=== PATIENT | female | born 1955 | race Caucasian/White ===

== ENCOUNTER 2018-03-12 01:17 | Inpatient (IN) | payer SELFPAY ==
[~2018-03-12] VITALS: Ht 162.6 cm; Wt 80.0 kg
[~2018-03-12 01:17] MED LIST: ALBUTEROL2.5 MG/3 M INH; CEFUROXIME500 MG PO; IPRATROPIU0.2 MG/1 M INH; LEVOTHYROXINE88 MCG PO; LISINOPRIL40 MG PO; METOPROLOL TART50 MG PO; NICOTINE PATCH1 EAC1 TD; OSTERA TABLET1 EACH PO; PREDNISONE20 MG PO; TRIAMCINOLONE A15 G1 TOP; VENTOLIN HFA18 GM INH
[2018-03-12] MEDS ORDERED: METOPROLOL TAR100 MG PO (02:26)
[2018-03-12] MEDS ORDERED: LISINOPRIL-HCT1 EACH PO (02:26)
[2018-03-12] MEDS ORDERED: AMLODIPINE BESYL5 MG PO (02:30)
--- NOTE | 2018-03-12 02:50 | NUR ---
PATIENT ARRIVED TO UNIT VIA STRETCHER, BREATHING IS EVEN AND UNLABORED, TRANSFERS TO BED WITH SBA. NOW RESTING IN BED. DENIES FURTHER NEEDS.
--- NOTE | 2018-03-12 03:00 | NUR ---
PATIENT IS RESTING IN BED, BREATHING IS EVEN AND UNLABORED. DENIES NEEDS AT THIS TIME. VITALS STABLE. CALL LIGHT WITHIN REACH.
--- NOTE | 2018-03-12 04:00 | NUR ---
PATIENT STATES "I HAVE A CRAMP IN MY LEFT LEG AND I JUST NEED TO STAND UP." SBA TO BEDSIDE, PATIENT STATES THAT PAIN IS RELIEVED WITH STANDING. NOW RESTING IN BED AGAIN, BREATHING IS EVEN AND UNLABORED. DENIES FURTHER NEEDS. CALL LIGHT WITHIN REACH.
--- NOTE | 2018-03-12 06:47 | NUR ---
PATIENT STATES "I FEEL LIKE I NEED A BREATHING TREATMENT." O2 SATURATION IS 97% ON 2L O2, RR IS 18, LUNG SOUNDS ARE AUDIBLE IN BASES BILATERALLY. REASSURED PATIENT AND CALLED RT FOR PATIENT EVALUATION. TRANSFERED PATIENT TO CHAIR DUE TO DISCOMFORT IN BED.
--- NOTE | 2018-03-12 07:15 | NUR ---
HAS MULT C/O, IE NOSE BEING DRY, L LEG CRAMPING AND WANTING TO SIT IN CHAIR. FEELING BETER SINCE NEB GIVEN. ASSISTED TO CHAIR BUT PT STANDING DO TO LEG CRAMPING .
--- NOTE | 2018-03-12 07:30 | NUR ---
BEDSIDE REPORT RECIEVED. PATIENT IS SITTING IN CHAIR. O2 AT [address] REQUESTING NORMAL SALINE FOR NOSE, THIS PLACED AT BEDSIDE.
--- NOTE | 2018-03-12 07:51 | NUR ---
PATIENT SITTING UP IN BEDSIDE RECLINER. THIS COGENERATION TECHNICIAN ASSISTED PATIENT UP TO BEDSIDE COMMODE AND BACK TO RECLINER. PATIENT WASHED HANDS AND FACE WITH WARM WASH CLOTH. CALL LIGHT IN REACH. NO OTHER NEEDS AT THIS TIME.
--- NOTE | 2018-03-12 08:45 | NUR ---
ASSESSMENT DONE. LUNGS DIMINISHED AND COURSE. ENCOURAGE DEEP BREATHING.TOOK BREAKFAST WELL. IS AWARE OF FLUID RESTRICTION.
--- NOTE | 2018-03-12 08:52 | NUR ---
PATIENT SITTING UP IN BEDSIDE RECLINER. PATIENT PERFORMED ORAL CARE. LINENS STRAIGHTENED AND READJUSTED NEEDED. PATIENT GIVEN ICE CHIPS FOR COMFORT AND ENCOURAGED TO CUT BACK ON FLUIDS. CALL LIGHT IN REACH. NO OTHER NEEDS AT THIS TIME.
--- NOTE | 2018-03-12 10:00 | NUR ---
PATIENT SITTING UP IN BEDSIDE RECLINER, RN IN ROOM. CALL LIGHT IN REACH. NO OTHER NEEDS AT THIS TIME.
--- NOTE | 2018-03-12 10:21 | NUR ---
D5W HUNG AT 300 ML/HR, TO INFUSE TOTAL OF 700 ML.
--- NOTE | 2018-03-12 11:05 | NUR ---
comtinue to sit in chair. prn neb treatment given. d5w at 300 ml infusing. HAS RECIEVED ALL PO MEDS. DENEIS PAIN. CONTINUE TO C/O NASAL CONGESTION.
--- NOTE | 2018-03-12 11:54 | NUR ---
PATIENT SITTING UP IN BEDSIDE RECLINER, PATIENT HAS HEAT PACK FOR LEG PAIN. PATIENT CALL LIGHT IN REACH. NO OTHER NEEDS AT THIS TIME.
--- NOTE | 2018-03-12 12:50 | NUR ---
D5W INFUSION COMPLETE FOR TOTAL OF 700 ML.
--- NOTE | 2018-03-12 13:26 | NUR ---
PT SITTING IN CHAIR, WORKING TO GET O2 HOSE UNTANGLED FROM BLANKET. PT SEEMED A LITTLE DISTANT, DID NOT WANT TO FORCE ANYTHING. EXTENDED A BLESSING, SHE THANKED ME. WILL FOLLOW NEEDED
--- NOTE | 2018-03-12 13:31 | NUR ---
THIS DIRECTOR OF INVESTIGATIONS ASSISTED PATIENT UP TO BATHROOM, AND BACK TO BEDSIDE RECLINER. PATIENT REQUESTED TO HAVE OXYGEN TITRATED UP TO 3L, RN NOTIFIED. PATIENT CALL LIGHT IN REACH, NO OTHER NEEDS AT THIS TIME.
--- NOTE | 2018-03-12 14:00 | NUR ---
SITTING IN CHAIR RESTING. NO DISTRESS NOTED.
--- NOTE | 2018-03-12 15:36 | NUR ---
PATIENT SITTING UP IN BEDSIDE RECLINER. RESPIRATORY THERAPY IN ROOM. CALL LIGHT IN REACH. NO OTHER NEEDS AT THIS TIME.
[2018-03-12] MEDS ORDERED: VITAMIN D1000 UNI1 PO (16:16)
[2018-03-12] MEDS ORDERED: COLACE100 MG PO (16:16)
[2018-03-12] MEDS ORDERED: MUCOSA400 MG PO (16:16)
[2018-03-12] MEDS ORDERED: PEPCID20 MG PO (16:17)
--- NOTE | 2018-03-12 16:17 | NUR ---
MED REC COMPLETE
--- NOTE | 2018-03-12 17:00 | NUR ---
ASSESSMENT UNCHANGED. HAS BEEN SITTING IN CHAIR. STATES FEELING BETTER.
--- NOTE | 2018-03-12 17:09 | NUR ---
PATIENT SITTING UP IN BEDSIDE RECLINER. PATIENT REQUESTED HAND LOTION AND WARM BLANKET. PATIENT CALL LIGHT IN REACH. NO OTHER NEEDS AT THIS TIME.
--- NOTE | 2018-03-12 18:52 | NUR ---
THIS BUSINESS REPORTING DEVELOPER ASSISTED PATIENT FROM BATHROOM BACK TO BEDSIDE RECLINER. PATIENT RESTING, CALLL LIGHT IN REACH. NO OTHER NEEDS AT THIS TIME.
--- NOTE | 2018-03-12 20:35 | NUR ---
IV SITE DRESSING CHANGED PER PT REQUEST. IV INTACT, NO REDNESS OR SWELLING, FLUSHES EASILY, PT DENIES PAIN WITH FLUSH. PT DENIES PAIN, NAUSEA, AND SOB IN GENERAL. PT ASHLYN 3L O2 VIA NASAL CANULA, HIMIDITY ADDED TO O2 PT C/O DRIED NARES. PT VITALS WNL AT THIS TIME. PT STATES THAT SHE WILL SLEEP IN HER CHAIR TONIGHT. PT ABLE TO ASHLYN PILLS EASILY.
--- NOTE | 2018-03-12 22:40 | NUR ---
pt up ambulated to the toilet, wob increased with activity. pt back to chair, states "i'm feeling hot!" temp in room turned down slightly, fan turned on. pt has call light within reach.
--- NOTE | 2018-03-13 00:55 | NUR ---
IV SITE INTACT, NO REDNESS OR SWELLING NOTED, FLUIDS INFUSE, PT STATES SITE IS TENDER. PT DENIES PAIN IN GENERAL, NAUSEA, AND SOB. PT IS SITTING UP IN CHAIR, STATES "I THINK I SLEPT FOR A LITTLE WHILE". PT ALERT AND ORIENTED X4, VITALS WNL.
--- NOTE | 2018-03-13 05:00 | NUR ---
PT SITTING UP IN CHIAR BRUSHING TEETH/DENTURES, AND WASHING FACE. PT DENIES PAIN, NAUSEA, AND SOB AT THIS TIME. VITALS WNL. PT HAS REMAINED IN CHAIR ALL SHIFT, EXCEPT WHEN AMBULATING TO TOILET. PT STATES "I MIGHT HAVE GOTTEN A LITTLE MORE SLEEP".
--- NOTE | 2018-03-13 06:34 | NUR ---
PT UP AMBULATED TO TOILET TO VOID. PT ABLE TO VOID 200 ML URINE. UNABLE TO HAVE BM, PT STATES "I THINK I MIGHT NEED ANOTHER STOOL SOFTENER". PT DENIES PAIN AND NAUSEA AT THIS TIME. WOB ONLY SLIGHTLY INCREASED WITH ACTIVITY.
--- NOTE | 2018-03-13 08:53 | NUR ---
RC'D NOTIFICATION FROM LAB REGARDING PT'S SODIUM LEVEL OF 116. PROVIDER BOTIFIED AT THIS TIME.
--- NOTE | 2018-03-13 09:00 | NUR ---
PATIENT CONTINUES TO SIT IN CHAIR AT THIS TIME. PO MEDICAITONS GIVEN BUT PATIENT STATES SHE NEEDS TO HAVE A BREATHING TREATMENT - RT CALLED AND WILL BE HERE TO GIVE TX. PATIENT'S SP02 IS 99% ON 2L NC. PT STATES SHE IS FEELING SHORT OF BREATH AND VISIBLY NOTED TO BE WORKING TO BREATH MORE THAN SHE WAS EARLIER THIS AM. PT STATES SHE STARTED TO FEEL THIS WAY AFTER EATING HER BREAKFAST. PT ADVISED TO HOLD OFF ON TAKING HER PILLS UNTIL AFTER SHE HAS A BREATHING TREATMENT. BP SLIGHTLY LOWER THIS AM AND LISINOPRIL AND NORVASC BEING HELD AFTER DISCUSSING WITH DR. NAIR. PT FEELS HER HEAD IS "STUFFY." CONTINUE TO MONITOR.
--- NOTE | 2018-03-13 09:09 | NUR ---
DR. NAIR IN ROOM AT THIS TIME EVALUATING PATIENT. PATIENT EXPLAINING TO MD HOW SHE IS FEELING MORE SHORT OF BREATH AT THIS TIME. CONTINUE TO MONITOR.
[2018-03-13] MEDS ORDERED: VENTOLIN HFA18 GM INH (13:33)
--- NOTE | 2018-03-13 15:35 | NUR ---
DR. NAIR UPDATED ON PATIENT'S SODIUM LEVEL AT 1400 WHICH WAS 117. NO FURTHER ORDERS REC'D AT THIS TIME. PATIENT ALSO GIVEN NASAL SPRAY TO HELP FLUSH SINUSES OUT. PT HAS BEEN COMPLAINING OF HER HEAD FEELING VERY CONGESTED ALL DAY.
--- NOTE | 2018-03-13 18:05 | NUR ---
PATIENT WANTING TO TAKE A SHOWER TODAY BUT FEELING TOO SHORT OF BREATH FOR THAT ACTIVITY. PT BECOMES FAIRLY SHORT OF BREATH AFTER AMBULATION INTO BATHROOM TO VOID. PT TO BE GIVEN WARM WIPES TO CLEANSE SELF WITH INSTEAD OF SHOWERING. PT REMAINS SITTING IN CHAIR AND PREFERS THE CHAIR OVER THE BED. LAB DRAW DUE AT THIS TIME. CONTINUE TO MONITOR.
--- NOTE | 2018-03-13 19:50 | NUR ---
PT UP TO BR TO VOID AND TO CLEAN SELF UP FOR THE NIGHT. BECOMES VERY SOB AFTER APPROX TEN MINUTES, BACK TO SIT IN CHAIR AND RECOVER. CALL LIGHT IN HAND.
--- NOTE | 2018-03-13 21:38 | NUR ---
PT UP TO CHAIR TO SLEEP. DID OWN BEDBATH AND HS CARES. INCREASED IVF TO 35ML/HR PER DR JOANIE GODINEZ (AT 2100). PT WITH O2 ON. CALL LIGHT IN REACH.
--- NOTE | 2018-03-13 23:42 | NUR ---
PT UP TO BR TO VOID. RT IN TO PROVIDE BREATHING TX.
--- NOTE | 2018-03-14 01:49 | NUR ---
PT ASLEEP IN CHAIR. NO S/S OF DISTRESS.
--- NOTE | 2018-03-14 02:25 | NUR ---
PT UP TO BR TO VOID AND ATTEMPT BM. BACK TO CHAIR. REQUESTS PRN NEB. RT NOTIFIED. NO OTHER NEEDS.
--- NOTE | 2018-03-14 03:37 | NUR ---
UPDATED DR NAIR RE: NA LEVEL OF 120. IV GTT HELD AT THIS TIME AND PT S.L. PER ORDER.
--- NOTE | 2018-03-14 04:16 | NUR ---
REPORT RECEIVED FROM REBECCA Atkinson RN
--- NOTE | 2018-03-14 05:18 | NUR ---
0500 PATIENT UP TO BATHROOM AND BACK TO RECLINER. DENIES ANY NEEDS AT THIS TIME.
--- NOTE | 2018-03-14 06:03 | NUR ---
UP TO BR TO TRY TO HAVE BM, NOT ABLE TO. BACK TO SIT UP IN RECLINER AND ORDERING BREAKFAST. SPO2 99% ON 2L/NC, LESS SOB WITH ACTIVITY THIS MORNING.
--- NOTE | 2018-03-14 07:30 | NUR ---
REPORT RECIEVED. PATIENT IS W/O. IS AWAITING BREAKFAST.
--- NOTE | 2018-03-14 08:00 | NUR ---
IS SITTING IN CHAIR. DENIES PROMLEMS. STATES SHE IS FEELING MUCH BETTER TODAY. ASKING ABOUT WHEN SHE WILL BE DISCHARGED. TALKED WITH PATIENT ABOUT PLAN OF CARE FOR DAY, INDICATES UNDERSTANDING.
--- NOTE | 2018-03-14 08:45 | NUR ---
TOOK ROUTINE MEDICATIONS W/O PROBLEMS.
--- NOTE | 2018-03-14 09:15 | NUR ---
REMAINS IN CHAIR. DENIES PROBLEMS.
--- NOTE | 2018-03-14 10:30 | NUR ---
TO BR TO HAVE MED BM. PATIENT DENIES NEED FOR SUPPOSITORY, THIS HELD.
--- NOTE | 2018-03-14 10:38 | NUR ---
PT SITTING IN CAHIR. SEEMED RESTLESS-PT MENTIONED THAT SHE REALLY WANTED TO TAKE A NAP BUT COULDN'T GET COMFORTABLE. WITH A SMILE SHE SAID SHE WAS FEELING BETTER THOUGH AND THANKED ME FOR COMING AND CHECKING ON HER. WILL FOLLOW NEEDED
--- NOTE | 2018-03-14 14:10 | NUR ---
LAB DRAWN. TO SHOWER.
--- NOTE | 2018-03-14 14:30 | NUR ---
TOLERATED SHOWER WELL.
--- NOTE | 2018-03-14 15:15 | NUR ---
DR. NAIR AWARE OF NA-124. PLAN TO INFUSE D5W, 320ML.
--- NOTE | 2018-03-14 16:30 | NUR ---
IV SITE RESTARTED TO R WRIST.
--- NOTE | 2018-03-14 16:50 | NUR ---
IVF D5W HUNG. TO INFUSE 320 ML PER ORDERS.
--- NOTE | 2018-03-14 18:10 | NUR ---
TRANSFERRED TO MEDICAL FLOOR VIA CHAIR. REPORT GIVEN.
--- NOTE | 2018-03-14 18:30 | NUR ---
PT TO FLOOR WITH SHAHID MCKEON BY CHAIR. 2L NC CHRONIC 02 SAT 100%. PT UP IN CHAIR WITH LEGS ELEVATED AND WARM BLANKET. SALINE NOSE SPRAY ON BEDSIDE TABLE. 1200ML FLUID RESTRICTION, PT IS COMPLIANT. SBA, STEADY GAIT. AO X3. DENIES PAIN. IV FLUSHES WELL. CALL LIGHT ON LAP.
--- NOTE | 2018-03-14 19:00 | NUR ---
SHIFT REPORT RECEIVED. PATIENT RETURNING TO RECLINER FROM BATHROOM. SHE DENIES ANY NEEDS AT THIS TIME. CALL LIGHT IN REACH.
--- NOTE | 2018-03-14 20:49 | NUR ---
VITALS AND I&OS DONE AND CHARTED. BEDSIDE TABLE AND CALL LIGHT WITHING REACH. PT NEEDS NOTHING AT THIS TIME.
--- NOTE | 2018-03-14 20:55 | NUR ---
SPOKE WITH ABOUT PATIENT'S NEWEST LABS. NEW ORDERS RECIEVED FOR HYPERTONIC SALINE IV FLUID @35CC/HR. VERIFIED USING READ BACK METHOD. REQUEST HE BE CALLED WITH LAB RESULT FROM 0200 LABS.
--- NOTE | 2018-03-14 21:00 | NUR ---
SHIFT ASSESSMENT COMPLETED. PATIENT RESTING IN RECLINER. APPEARS COMFORTABLE. AAOX4. BREATHING EVEN AND NONLABORED. TOLERATING 2L NC. EXPIRTORY WHEEZES HEARD THROUGHOUT, LOUDER IN LOWER LOBES TORSTEN. ENCOURAGED COUGH AND DEEP BREATHING. APPETITE IS GOOD, NO NAUSEA. BM TODAY. NO EDEMA NOTED. PATIENT FEELS THAT HER LEFT ANKLE IS SLIGHTLY SWOLLEN, SHE REPORTS PAIN WHEN AREA IS TOUCHED. STATES "I THINK I REMEMBER BUMPING IT ON SOMETHING AT HOME A FEW DAYS AGO". SKIN IS INTACT, NO BRUISING NOTED. IV SITE IN RIGHT WRIST, FLUSHES WELL. PATIENT COMPLAINS OF DISCOMFORT AT THE SITE. DECLINES WARM PACK. NO OTHER NEEDS AT THIS TIME. CALL LIGHT IN REACH. WAITING ON NEW IV FLUIDS FROM DIRECTOR FOUNDATION.
--- NOTE | 2018-03-14 22:00 | NUR ---
IV FLUIDS STARTED PER ORDER. EDUCATION PROVIDED VERBALLY TO PATIENT ON NEW TREATMENT. PATIENT VERBILIZED UNDERSTANDING. PATIENT COMPLAINED OF PAIN AT IV SITE, USUALLY WITH MOVEMENT. THE COBAN IS ALSO UNCOMFORTABLE ON HER SKIN, BUT SHE REFUSED TAPE DUE TO IRRITATION. WARM PACK APPLIED TO AREA, CUSHIONED COBAND TO REDUCE FRICTION. PATIENT REQUESTING TO BE WOKEN UP FOR HER MIDNIGHT NEB TREATMENT. RT AWARE.
--- NOTE | 2018-03-15 00:15 | NUR ---
PATIENT SITTING UPRIGHT IN RECLINER. BREATHING APPEARS SLIGHTLY LABORED. NC IN PLACE. WILL CONTINUE TO MONITOR.
--- NOTE | 2018-03-15 01:51 | NUR ---
PATIENT UP TO THE BATHROOM. LARGE BM. BACK TO RECLINER. DENIES FURTHER NEEDS. LAB CONTACTED FOR 0200 LABS.
--- NOTE | 2018-03-15 02:44 | NUR ---
PATIENT'S LABS SHOW INCREASE IN SODIUM FROM 122 TO 124. AWARE. ORDERS TO STOP 3% SALINE INFUSION AT THIS TIME AND REPEAT LABS AT 0800.
--- NOTE | 2018-03-15 02:45 | NUR ---
PATIENT REPORTS FEELING UPSET BY CONVERSATION WITH PROFESSOR OF FINE ART. DISCUSSED THIS WITH THE PATIENT AND OFFERED THERAPUTIC COMMUNICATION. DISCUSSED CONCERNS WITH MODERATE NEEDS TEACHER AND PLANNING SPECIALIST.
--- NOTE | 2018-03-15 04:00 | NUR ---
PATIENT SLEEPING SOUNDLY. DID NOT WAKE WHEN RN ENTERED ROOM. RR EVEN AND NONLABORED. 2L NC. RR18.
--- NOTE | 2018-03-15 05:15 | NUR ---
patient up to the bathroom. requesting prn neb. rt contacted.
--- NOTE | 2018-03-15 05:53 | NUR ---
PATIENT SLEPT OFF AND ON THROUGHOUT THE SHIFT. TOLERATED 2L NC, EXPIRTORY WHEEZES HEARD THROUGHOUT. SCHEDULED NEBS & USING IS. WITHIN 1200ML FLUID RESTRICTION. SODIUM DOWN TO 122 AT 2000, 3% SALINE AT 35CC/HR UNTIL 0200 LAB RESULTS SHOW INCREASE SODIUM 124. HOLD IV FLUID UNTIL 0800 LAB RESULTS. CONTACT WITH RESULTS. SBA.
--- NOTE | 2018-03-15 06:05 | NUR ---
VITALS AND I&OS DONE AND CHARTED. BEDSIDE TABLE AND CALL LIGHT WITHIN REACH. EMPTIED GARBAGES. PT NEEDS NOTHING ELSE AT THIS TIME.
--- NOTE | 2018-03-15 08:39 | NUR ---
PATIENT AMBULATED TO THE BR WITH NURSE STANDBY. WILL CALL WHEN FINISHED.
--- NOTE | 2018-03-15 08:51 | NUR ---
HERE ON MED/SURG AND INFORMED OF AM SODIUM LEVEL. HYPERTONIC SODIUM SOLUTION RESTARTED AT 35MLS/HR AND WILL REDRAW LABS THIS AFTERNOON. PATIENT WANTS TO GO HOME AND WANTS TO TALK WITH . INFORMED AND WILL SPEAK TO PATIENT ON ROUNDS.
--- NOTE | 2018-03-15 15:35 | NUR ---
PATIENT IS SITTING UP IN HER CHAIR.
--- NOTE | 2018-03-15 18:55 | NUR ---
PATIENT REMAINS SBA WHEN AMBULATING, BUT HAS HAD NO ISSUES. UP TO THE RESTROOM MULTIPLE TIMES TODAY. HAS BEEN EATING WELL. HYPERTONIC SODIUM SOLUTION TURNED BACK ON AT 35MLS AN HOUR THIS AM AFTER MORNING LABS CAME BACK AND V.O GIVEN BY DR. NAIR. A TOTAL OF 249MLS INFUSED BY THE AFTERNOON WHEN 3PM LABS CAME BACK AND CALLED TO STOP THE INFUSION. EVENING LABS ORDERED TO RECHECK SODIUM ON NOC SHIFT. PATIENT REMAINS ON 1200ML PO FLUID RESTICTION AND HAS BEEN VERY COMPLIANT IN MAINTAINING THIS TODAY. 1310 RT WRIST IV SITE WAS INFLAMMED AND TENDER. IV DC'D INTACT AND NEW 22G IV STARTED IN THE LAC AND THE HYPERTONIC SOLUTION INFUSED THERE WITHOUT DIFFICULTIES UNTIL SHUT OFF AFTER 3PM LAB RESULTS.
--- NOTE | 2018-03-15 19:15 | NUR ---
SHIFT REPORT RECEIVED. PATIENT RETURNING TO RECLINER FROM BATHROOM. SHE CALLED FROM A NEB AND RT IS AWARE. SHE DENIES ANY NEEDS AT THIS TIME. CALL LIGHT IN REACH.
--- NOTE | 2018-03-15 20:05 | NUR ---
HELPED PT TO THE BATHROOM AND BACK TO THE CHAIR. BEDSIDE TABLE AND CALL LIGHT WITHIN REACH.
--- NOTE | 2018-03-15 20:15 | NUR ---
ROUNDED CHARGE. PATIENT IS BEING IS UP AMBULATING BACK TO BED. WARPING MILL OPERATOR IN THE ROOM. PATIENT DENIES ANY COMMENTS, QUESTIONS, OR CONCERNS. NO NEEDS NOTED. CALL LIGHT IN REACH.
--- NOTE | 2018-03-15 20:33 | NUR ---
VITALS AND I&OS DONE AND CHARTED. GOT HER A NEW TOOTHBRUSH AND TOOTHPASTE. BEDSIDE TABLE AND CALL LIGHT WITHIN REACH. GOT HER TWO BLANKETS FOR THE NIGHT.
--- NOTE | 2018-03-15 21:00 | NUR ---
EVENING MEDS GIVEN PER ORDER. PATIENT IS AAOX3. 2L NC. LUNGS ARE CLEAR IN UPPER LOBES TORSTEN, SLIGHT EXPIRTORY WHEEZES IN RLL AND DIMINISHED IN THE BASES. NO PAIN AT THIS TIME. IV SITE WNL. TRACE EDEMA NOTED IN ANKLES. CMS INTACT. NO GI/ CONCERNS. EDUCATION ON CURRENT COURSE OF TREATMENT. PATIENT VERBILIZED UNDERSTANDING. WATER PROVIDED. STILL ANOTHER 70MLS FLUID AVAILABLE TONIGHT.
--- NOTE | 2018-03-15 21:49 | NUR ---
CONTACTED WITH NEW LAB RESULTS. NEW ORDERS FOR 3% SALINE AT 35CC/HR RECEIVED. VERIFIED USING READ BACK METHOD. TOP INSTALLER CALLED FOR MED.
--- NOTE | 2018-03-15 22:20 | NUR ---
RN DWAINE STARTED 3% NORMAL SALINE PER ORDER. THIS RN ASSESSED IV SITE AND DOUBLE CHECKED IV FLUID. PATIENT IS DENYING PAIN AT IV SITE, APPEARS WNL. NO NEEDS AT THIS TIME.
--- NOTE | 2018-03-16 | NUR ---
patient arrived to the floor with a 20G iv in his right hand. second IV site established in left forearm. Blood admin changed to this site and rate increased from 100ml/hr to 150mls/hr. Patient tolerated well. He denies any pain or concerns at this time. No toileting needs. Bed alarm on. Call light in hand.
--- NOTE | 2018-03-16 01:30 | NUR ---
PATIENT UP TO THE BATHROOM. DENIES ANY NEEDS. LAST 70MLS FLUIDS GIVEN.
--- NOTE | 2018-03-16 03:12 | NUR ---
PATIENT'S 0200 LABS RESULTS WERE REPORTED TO PER REQUEST. ORDERS TO CONTINUE 3% SALINE AT 35 CC/HR PER ORDER AND REPEAT LABS AT 0800.
--- NOTE | 2018-03-16 05:58 | NUR ---
VITALS AND I&OS DONE AND CHARTED. BEDSIDE TABLE AND CALL LIGHT IN REACH. PT NEEDS NOTHING ELSE AT THIS TIME.
--- NOTE | 2018-03-16 06:08 | NUR ---
patient up to the bathroom. tolerated well. back to recliner. iv fluids infusing per order. assisted patient to put regular clothes on per her request. morning meds given.
--- NOTE | 2018-03-16 07:00 | NUR ---
PATIENT SLEPT BETTER THAN PREVIOUS SHIFT. 3% SALINE INFUSING AT 35CC/HR PER ORDER SINCE 2200 LAST NIGHT. PENDING LAB RESULTS FOR 0800 REGAURDING SODIUM LEVELS. 2L NC. FLUID RESTRICTION. SBA.
--- NOTE | 2018-03-16 08:01 | NUR ---
PATIENT SITTING UP IN RECLINER AWAITING BREAKFAST. REMAINS ON 1200ML FLUID RESTRICTION. LAC IV SITE LOOKS GOOD AND STILL INFUSING HYPERTONIC SODIUM SOLUTION. PATIENT IS NOT HAVING ANY PAIN. REMAINS ON HER CHRONIC 2 LITERS O2 PER NC. EXPIRATORY WHEEZE KRIS, ALL OTHER LUNG SALES DEMINISHED.
--- NOTE | 2018-03-16 08:45 | NUR ---
REPORTED TO DR. NAIR THAT LAB BACK AT 128
--- NOTE | 2018-03-16 09:00 | NUR ---
INFORMED BY JUSTIN CHARGE NURSE THAT JUST CALLED AND INFORMED HER THAT WE NEEDED TO KEEP THE PATIENT'S HYPERTONIC SODIUM RUNNING AM LAB WORK SHOWED PATIENT'S SODIUM TO STILL BE LOW.
--- NOTE | 2018-03-16 10:49 | NUR ---
URINE COLLECTED PER DR. NAIR ORDER. SENT DOWN TO LAB. MADE PATIENT SL. PER NEW ORDERS,
--- NOTE | 2018-03-16 11:10 | NUR ---
VITALS AND I&Os DONE. RN IN ROOM. NO OTHER NEEDS AT THIS TIME.
[2018-03-16] MEDS ORDERED: AMOX TR-K CLV1 EAC1 PO (12:20)
[2018-03-16] MEDS ORDERED: PREDNISONE20 MG PO (12:25)
[2018-03-16] MEDS ORDERED: SODIUM CHLORIDE1 GM PO (12:26)
[2018-03-16] MEDS ORDERED: NICOTINE PATCH1 EAC1 TD (12:52)
[2018-03-16] MEDS ORDERED: NICORETTE4 M2 BUCCAL (12:52)
--- NOTE | 2018-03-16 13:45 | NUR ---
PATIENT IN CT AT THIS TIME.
--- NOTE | 2018-03-16 15:35 | NUR ---
PATIENT WAS REALLY WANTING TO GO HOME TODAY AND HAS NOW BEEN DC'D. HYPERTONIC NA+ DRIP DC'D THIS AM. PATIENT HAD MORE LAB WORK DONE THIS AFTERNOON ALONG WITH CT SCANS ORDERED BY . IV DC'D INTACT BEFORE DC AND PATIENT AND VERBALIZED UNDERSTNDING OF ALL DC INSTRUCTIONS. PATIENT PAIN FREE AT TIME OF DC. PATIENT WENT HOME ON HER OWN O2 TANK AT 2L/NC.
== END 2018-03-16 15:35 | disposition home or self-care (01) | DRG 644 ==
LOC: ED 01:17 → CCU 01:19 → MS 16:02 → CCU 16:03 → MS 03-14 18:28
PROVIDERS: ADMIT Internal Medicine
DX: E22.2 Syndrome of inappropriate secretion of antidiuretic hormone (principal); J44.1 Chronic obstructive pulmonary disease with (acute) exacerbation; J96.11 Chronic respiratory failure with hypoxia; T50.2X5A Adverse effect of carbonic-anhydrase inhibitors, benzothiadiazides and other diuretics, initial encounter; J01.40 Acute pansinusitis, unspecified; B96.89 Other specified bacterial agents as the cause of diseases classified elsewhere; F17.210 Nicotine dependence, cigarettes, uncomplicated; I10 Essential (primary) hypertension; E03.9 Hypothyroidism, unspecified; G25.81 Restless legs syndrome; N28.9 Disorder of kidney and ureter, unspecified; Z99.81 Dependence on supplemental oxygen; Z79.899 Other long term (current) drug therapy
CPT/HCPCS: 36415; 70470; 71045; 71260; 80048; 80053; 82024; 82533; 83880; 83930; 83935; 84133; 84300; 84443; 84484; 84550; 85025; 94640; 94668; 96374; 99285; 99407; G0378; J1650; J2930; J7070; J7512; Q9967

== ENCOUNTER 2018-03-30 01:41 | Emergency (ER) | payer SELFPAY ==
[~2018-03-30] VITALS: Ht 162.6 cm; Wt 79.9 kg
[~2018-03-30 01:41] MED LIST changes: +AMLODIPINE BESYL5 MG PO; +AMOX TR-K CLV1 EAC1 PO; +COLACE100 MG PO; +LISINOPRIL-HCT1 EACH PO; +METOPROLOL TAR100 MG PO; +MUCOSA400 MG PO; +NICORETTE4 M2 BUCCAL; +PEPCID20 MG PO; +SODIUM CHLORIDE1 GM PO; +VITAMIN D1000 UNI1 PO
[2018-03-30] MEDS ORDERED: PREDNISONE20 MG PO (03:00)
== END 2018-03-30 03:59 | disposition home or self-care (01) ==
LOC: ED 01:41
DX: J44.1 Chronic obstructive pulmonary disease with (acute) exacerbation (principal); E03.9 Hypothyroidism, unspecified; I10 Essential (primary) hypertension; F17.200 Nicotine dependence, unspecified, uncomplicated; Z79.899 Other long term (current) drug therapy
CPT/HCPCS: 36600; 71045; 80053; 82803; 83880; 84484; 85025; 94644; 96374; 99283; J2930

== ENCOUNTER 2018-04-10 01:27 | Emergency (ER) | payer OTHER ==
[~2018-04-10] VITALS: Ht 162.6 cm; Wt 85.0 kg
--- NOTE | 2018-04-10 05:28 | NUR ---
I RESPONDED TO NAA SANDOVAL FOR THIS PT. SHE WAS NON-RESPONSIVE WHEN SHE ARRIVED. HER ARRIVED LATER. BEFORE HE ARRIVED HE CALLED AND ASKED FOR A REPORT ON HER CONDITION. I TALKED WITH HIM AND TOLD HIM WHAT DR TOLD ME. I OFFERED PRAYER BUT HE STRONGLY REFUSED BUT THANKED ME FOR OFFERING. WHEN HE ARRIVED I ESCORTED HIM TO SEE PT. HE WAS VERY STOIC IN HIS BEHAVIOR, SAYING HE WILL DEAL WITH THINGS IN HIS OWN PERSONAL WAY, STRESSING PERSONAL. PT WAS TOUCH AND GO SO (ORTIZ) DECIDED TO GO HOME SAYING HE COULD NOT DO ANYTHING HERE. I ASKED FOR HIS PHONE NUMBER, WHICH HE GAVE, AND TOLD HIM I WOULD CALL WHEN SOMETHING CHANGED- HE THANKED ME AND SAID HE WOULD LIKE THAT, WHETHER GOOD OR BAD HE WOULD HANDLE IT. WHEN PT WAS TRANSPORTED TO [facility] [place], I CALLED ORTIZ AND TOLD HIM WHERE SHE WAS GOING AND THE ROOM NUMBER SHE WAS GOING TO (ACCORDING TO SPD MANAGER).BEFORE HE LEFT, I GAVE HIM A [employer] PACK LIST, HE THANKED ME AND SAID HE HAD A LIST FOR CAMPING AND HIKING SO HE WOULDN'T FORGET.
--- NOTE | 2018-04-10 08:50 | EKG ---
[facility] [address] [place] [address] Signed Sinus tachycardia Low voltage QRS Nonspecific ST abnormality Abnormal ECG When compared with ECG of 21-FEB-2017 11:48, QRS voltage has decreased Confirmed by MARYJO NAIR MD ([id number] on 04/10/2018 8:49:59 AM Electronically Signed By: MARYJO NAIR MD 04/10/18 0850 PATIENT NAME: RUPA QUINTANILLA Electrocardiogram DATE OF : 53 PHYSICIAN: MARYJO NAIR MD REPORT #: [id number] REPORT IS CONFIDENTIAL AND NOT TO BE RELEASED WITHOUT AUTHORIZATION
== END 2018-04-10 04:13 | disposition short-term general hospital (02) ==
LOC: ED 01:27
PROC: 5A12012 Performance of Cardiac Output, Single, Manual (ICD-10-PCS; principal; 2018-04-10)
PROC: 0T9B70Z Drainage of Bladder with Drainage Device, Via Natural or Artificial Opening (ICD-10-PCS; principal; 2018-04-10)
DX: I46.9 Cardiac arrest, cause unspecified (principal); E87.5 Hyperkalemia; I10 Essential (primary) hypertension; E03.9 Hypothyroidism, unspecified; J44.9 Chronic obstructive pulmonary disease, unspecified; Z79.899 Other long term (current) drug therapy
CPT/HCPCS: 31720; 36600; 51702; 71045; 80053; 82803; 83880; 84484; 85025; 85610; 85730; 92950; 93005; 93010; 94002; 94640; 96374; 96375; 99285; J0171; J1815; J7050